=== PATIENT | female | born 1935 | race Caucasian/White ===

== ENCOUNTER 2017-12-01 09:22 | Emergency (ER) | payer OTHER ==
[~2017-12-01] VITALS: Ht 157.5 cm; Wt 74.8 kg
[~2017-12-01 09:22] MED LIST: CAPOTEN12.5 MG; COZAAR100 MG; CRESTOR5 MG; DIAZEPAM10 MG PO; PEPCID40 MG PO; SYNTHROID100 MCG; TENORMIN100 M1; ZETIA10 MG; ZOFRAN4 MG PO
[2017-12-01] MEDS ORDERED: CAPOTEN12.5 MG PO (09:54)
[2017-12-01] MEDS ORDERED: CELEBREX100 MG PO (13:21)
[2017-12-01] MEDS ORDERED: PERCOCET 5-3251 EACH PO (13:21)
[2017-12-01] MEDS ORDERED: MEDROLPACK PO (13:21)
[2017-12-01] MEDS ORDERED: ZANTAC300 MG PO (13:21)
== END 2017-12-01 13:46 | disposition home or self-care (01) ==
LOC: ER 09:22
DX: M25.551 Pain in right hip (principal); I10 Essential (primary) hypertension